=== PATIENT | female | born 1970 | race Caucasian/White ===

== ENCOUNTER → 2016-08-31 | Day surgery (SDC) | payer OTHER ==
[~2016-08-31] VITALS: Ht 157.5 cm; Wt 56.7 kg
--- NOTE | 2016-08-31 14:47 | Operative Report ---
Operative/Inv Procedure Report Surgery Date: 08/31/16 Name of Procedure: Hysteroscopy, dilation curettage Pre-Operative Diagnosis: Abnormal uterine bleeding, suspicion of endometrial polyp Post-Operative Diagnosis: Normal endometrial cavity, atrophic endometrium Estimated Blood Loss: scant Surgeon/Allergy And Immunology Specialist: CHRISTIAN SHELTON DO Anesthesia: tiva IV Fluids: 900 mL of crystalloid Drains: None Specimens: Endometrial and endocervical curettage Complications: None Condition: Good Operative Indication: This patient is a 46-year-old female who presents with persistent abnormal uterine bleeding despite being on control pills. test was negative. She underwent pelvic ultrasound that was suggestive of an endometrial polyp. She was counseled on hysteroscopy, D&C, polypectomy under anesthesia in the operating room versus office hysteroscopy and endometrial biopsy if no obvious polyp. She desired to proceed in the operating room. She was counseled on risks, benefits, alternatives of the procedure including risk of bleeding, infection, need for additional procedure should competition occur, persistent abnormal uterine bleeding. She stated verbal understanding of all the above and desires to proceed. Operative/Procedure Note Note: The patient was taken to the operating room where anesthesia was obtained without difficulty. She was placed in the dorsal lithotomy position and examined under anesthesia. An anteverted 8 cm uterus without mass. No adnexal masses were palpable. She was then prepared and draped in usual sterile fashion. A Graves speculum was placed inside the patient's vagina. A paracervical block was then performed with 10 mL of 1% lidocaine plain. The cervix was then grasped with single-tooth tenaculum and the cervix was then gently dilated to 21 [place] with Rickey dilators. Diagnostic hysteroscopy was then performed using normal saline as distention media. She had a normal- appearing endocervical canal, normal-appearing endometrial cavity. There were no intracavitary defects such as polyps or fibroids. Should normal-appearing bilateral tubal ostia. Hysteroscope was removed and an endocervical and endometrial sharp curettage was performed. Small tissue was obtained. All insurance were then removed from the patient's uterus, cervix, vagina. Hemostasis of tenaculum sites was achieved with silver nitrate. All sponge, lap counts and needle counts were correct 2. The patient was taken to the recovery area in stable condition. Findings were relayed to the patient's in the recovery area. Findings: Examination under anesthesia revealed a small anteverted uterus approximately 8- 10 cm. No adnexal masses. Hysteroscopic findings: Normal atrophic appearing endometrial cavity, normal- appearing bilateral tubal ostia, no intracavitary defects Discharge Disposition: Same Day Admissions
== END ==
LOC: STS 01:51
DX: N93.9 Abnormal uterine and vaginal bleeding, unspecified (principal); N71.1 Chronic inflammatory disease of uterus; N85.4 Malposition of uterus; Z87.891 Personal history of nicotine dependence
CPT/HCPCS: 81025; 88305; J2250